=== PATIENT | male | born 1960 | race Asian ===

== ENCOUNTER 2021-02-17 07:26 | Outpatient (REF) | payer OTHER, SELFPAY ==
[2021-02-17 08:16] LABS: Estimated Average Glucose 140 mg/dL; Hemoglobin A1c % 6.5 %
[2021-02-17 08:25] LABS: Anion Gap 14 (12-20); Blood Urea Nitrogen 16 mg/dL (9-16); Calcium 9.3 mg/dL (8.4-10.2); Carbon Dioxide 27 mmol/L (22-29); Chloride 103 mmol/L (96-108); Cholesterol 238 mg/dL; Estimated Glomerular Filt Rate 59; Glucose Random 125 mg/dL (60-115); HDL Cholesterol 40 mg/dL; LDL Cholesterol Calculated 144 mg/dl; Potassium 4.6 mmol/L (3.3-5.1); Sodium 139 mmol/L (135-145); Triglycerides 272 mg/dL
[2021-02-17 08:47] LABS: Prostate Specific Antigen Scr 1.59 ng/mL (<0.05-4.0); Thyroid Stimulating Hormone 2.03 uIU/mL (0.32-4.0); Vitamin D 25-OH Total 26.2 ng/mL (>30)
== END 2021-02-17 07:27 | disposition home or self-care (01) ==
LOC: HO.LAB 07:26
PROVIDERS: Absent Provider Internal Medicine; PCP Internal Medicine; Visit Provider Pediatrics
DX: Z12.5 Encounter for screening for malignant neoplasm of prostate (principal); E55.9 Vitamin D deficiency, unspecified; E66.3 Overweight
CPT/HCPCS: 36415; 80048; 80061; 82306; 83036; 84153; 84443

== ENCOUNTER 2021-06-13 09:44 | Outpatient (REF) | payer OTHER, SELFPAY ==
[2021-06-13 10:41] LABS: Estimated Average Glucose 146 mg/dL; Hemoglobin A1c % 6.7 %
[2021-06-13 10:50] LABS: Alanine Aminotransferase 19 U/L (0-40); Albumin Level 4.5 g/dL (3.5-5.0); Alkaline Phosphatase 95 U/L (39-117); Anion Gap 13 (12-20); Aspartate Amino Transferase 23 U/L (5-37); Bilirubin Total 1.1 mg/dL (0.0-1.0); Blood Urea Nitrogen 16 mg/dL (9-16); Calcium 9.9 mg/dL (8.4-10.2); Carbon Dioxide 27 mmol/L (22-29); Chloride 104 mmol/L (96-108); Cholesterol 192 mg/dL; Estimated Glomerular Filt Rate 55; Glucose Fasting 134 mg/dL (60-99); HDL Cholesterol 47 mg/dL; LDL Cholesterol Calculated 101 mg/dl; Potassium 4.3 mmol/L (3.3-5.1); Sodium 140 mmol/L (135-145); Total Protein 7.3 g/dL (6.5-8.0); Triglycerides 221 mg/dL
[2021-06-13 10:54] LABS: Microalbum/Creatinine Ratio Ur 4.5 ug/mg cr
== END 2021-06-13 09:45 | disposition home or self-care (01) ==
LOC: HO.10HDL 09:44
PROVIDERS: PCP Internal Medicine; Visit Provider Internal Medicine
DX: I10 Essential (primary) hypertension (principal); R73.03 Prediabetes; E78.5 Hyperlipidemia, unspecified
CPT/HCPCS: 36415; 80053; 80061; 82043; 83036

== ENCOUNTER 2021-12-14 07:36 | Outpatient (REF) | payer OTHER, SELFPAY ==
[2021-12-14 08:02] LABS: Binax Internal Control QC Valid; Binax Now Covid-19 Ag Negative (Negative)
== END 2021-12-14 07:37 | disposition home or self-care (01) ==
LOC: HO.LAB 07:36
PROVIDERS: Visit Provider Internal Medicine
DX: Z20.822 Contact with and (suspected) exposure to COVID-19 (principal)
CPT/HCPCS: C9803

== ENCOUNTER 2022-01-22 17:06 | Outpatient (REF) | payer OTHER, SELFPAY ==
[2022-01-22 17:22] LABS: MANUAL DIFF FLAG NO
[2022-01-22 18:00] LABS: Basophils Absolute Auto 0.1 X10*3/uL (0.0-0.2); Basophils Percent Auto 0.8 % (0-2); Eosinophils Absolute Auto 0.2 X10*3/uL (0.0-0.4); Eosinophils Percent Auto 2.9 % (0-4); Hematocrit 43.9 % (42.0-52.0); Hemoglobin 14.5 g/dl (14.0-18.0); Imm Gran Abs Auto 0.02 X10*3/uL (0.00-0.03); Imm Gran Pct Auto 0.3 % (0.0-0.4); Lymphocytes Absolute Auto 1.7 X10*3/uL (1.2-4.9); Lymphocytes Percent Auto 26.7 % (20-40); Mean Corpuscular Hemoglobin 28.5 pg (27.0-33.0); Mean Corpuscular Volume 86.4 fL (80.0-98.0); Mean Platelet Volume 10.5 fL (9.4-12.4); Monocytes Absolute Auto 0.6 X10*3/uL (0.1-1.2); Neutrophils Absolute Auto 3.9 x10*3/uL (2.0-8.3); Neutrophils Percent Auto 60.3 % (45-73); Platelet Count 262 X10*3/uL (160-400); Red Blood Count 5.08 X10*6/uL (4.60-5.80); Red Cell Distribution Width 12.2 % (11.0-16.0); White Blood Count 6.5 X10*3/uL (4.8-10.8)
[2022-01-22 18:07] LABS: Estimated Average Glucose 146 mg/dL; Hemoglobin A1c % 6.7 %
[2022-01-22 18:22] LABS: Alanine Aminotransferase 28 U/L (0-40); Albumin Level 4.7 g/dL (3.5-5.0); Alkaline Phosphatase 101 U/L (39-117); Anion Gap 13 (12-20); Aspartate Amino Transferase 32 U/L (5-37); Bilirubin Total 0.6 mg/dL (0.0-1.0); Blood Urea Nitrogen 23 mg/dL (9-16); Calcium 10.2 mg/dL (8.4-10.2); Carbon Dioxide 26 mmol/L (22-29); Chloride 102 mmol/L (96-108); Estimated Glomerular Filt Rate 57; Glucose Random 108 mg/dL (60-115); Potassium 4.5 mmol/L (3.3-5.1); Sodium 136 mmol/L (135-145); Total Protein 7.7 g/dL (6.5-8.0)
[2022-01-22 18:42] LABS: Prostate Specific Antigen 1.49 ng/mL (<0.05-4.0); Vitamin D 25-OH Total 21.8 ng/mL (>30)
[2022-01-22 18:54] LABS: Creatinine Urine 89.57 mg/dL; Microalbumin Urine < 5.0 mg/L
== END 2022-01-22 17:07 | disposition home or self-care (01) ==
LOC: HO.LAB 17:06
PROVIDERS: PCP Internal Medicine; Visit Provider Internal Medicine
DX: Z12.5 Encounter for screening for malignant neoplasm of prostate (principal); E11.9 Type 2 diabetes mellitus without complications; E55.9 Vitamin D deficiency, unspecified; I10 Essential (primary) hypertension; E78.00 Pure hypercholesterolemia, unspecified
CPT/HCPCS: 36415; 80053; 82043; 82306; 83036; 84153; 85025

== ENCOUNTER 2022-06-17 11:36 | Outpatient (REF) | payer OTHER, SELFPAY ==
[2022-06-17 13:42] LABS: Anion Gap 10 (12-20); Blood Urea Nitrogen 11 mg/dL (9-16); Calcium 9.2 mg/dL (8.4-10.2); Carbon Dioxide 25 mmol/L (22-29); Chloride 107 mmol/L (96-108); Estimated Glomerular Filt Rate > 60; Glucose Random 119 mg/dL (60-115); Potassium 4.1 mmol/L (3.3-5.1); Sodium 138 mmol/L (135-145)
[2022-06-17 14:07] LABS: Vitamin D 25-OH Total 21.8 ng/mL (>30)
[2022-06-17 14:51] LABS: Estimated Average Glucose 137 mg/dL; Hemoglobin A1c % 6.4 %
== END 2022-06-17 11:37 | disposition home or self-care (01) ==
LOC: HO.10HDL 11:36
PROVIDERS: Visit Provider Internal Medicine
DX: I12.9 Hypertensive chronic kidney disease with stage 1 through stage 4 chronic kidney disease, or unspecified chronic kidney disease (principal); N18.9 Chronic kidney disease, unspecified; R73.03 Prediabetes; E55.9 Vitamin D deficiency, unspecified
CPT/HCPCS: 36415; 80048; 82306; 83036

== ENCOUNTER 2022-09-23 11:43 | Outpatient (REF) | payer OTHER, SELFPAY ==
[2022-09-23 13:53] LABS: Estimated Average Glucose 134 mg/dL; Hemoglobin A1c % 6.3 %
[2022-09-23 13:59] LABS: Alanine Aminotransferase 20 U/L (0-40); Albumin Level 4.5 g/dL (3.5-5.0); Alkaline Phosphatase 110 U/L (39-117); Anion Gap 15 (12-20); Aspartate Amino Transferase 27 U/L (5-37); Bilirubin Total 0.4 mg/dL (0.0-1.0); Blood Urea Nitrogen 20 mg/dL (9-16); Calcium 9.6 mg/dL (8.4-10.2); Carbon Dioxide 23 mmol/L (22-29); Chloride 104 mmol/L (96-108); Estimated Glomerular Filt Rate > 60; Glucose Random 99 mg/dL (60-115); Potassium 4.4 mmol/L (3.3-5.1); Sodium 138 mmol/L (135-145); Total Protein 7.3 g/dL (6.5-8.0)
== END 2022-09-23 11:44 | disposition home or self-care (01) ==
LOC: HO.10HDL 11:43
PROVIDERS: Visit Provider Internal Medicine
DX: I10 Essential (primary) hypertension (principal); R73.03 Prediabetes; E55.9 Vitamin D deficiency, unspecified
CPT/HCPCS: 36415; 80053; 82306; 83036

== ENCOUNTER 2024-04-28 10:10 | Outpatient (REF) | payer OTHER, SELFPAY ==
[2024-04-28 10:19] LABS: MANUAL DIFF FLAG NO
[2024-04-28 10:34] LABS: Basophils Absolute Auto 0.1 X10*3/uL (0.0-0.2); Basophils Percent Auto 1.1 % (0-2); Eosinophils Absolute Auto 0.2 X10*3/uL (0.0-0.4); Eosinophils Percent Auto 4.4 % (0-4); Hematocrit 43.4 % (42.0-52.0); Hemoglobin 14.5 g/dl (14.0-18.0); Imm Gran Abs Auto 0.01 X10*3/uL (0.00-0.03); Imm Gran Pct Auto 0.2 % (0.0-0.4); Lymphocytes Absolute Auto 1.7 X10*3/uL (1.2-4.9); Lymphocytes Percent Auto 31.3 % (20-40); Mean Corpuscular HGB Conc 33.4 g/dl (31.0-36.0); Mean Corpuscular Hemoglobin 28.8 pg (27.0-33.0); Mean Corpuscular Volume 86.3 fL (80.0-98.0); Mean Platelet Volume 10.1 fL (9.4-12.4); Monocytes Absolute Auto 0.4 X10*3/uL (0.1-1.2); Monocytes Percent Auto 8.3 % (2-11); Neutrophils Absolute Auto 2.9 x10*3/uL (2.0-8.3); Neutrophils Percent Auto 54.7 % (45-73); Platelet Count 231 X10*3/uL (160-400); Red Blood Count 5.03 X10*6/uL (4.60-5.80); Red Cell Distribution Width 11.9 % (11.0-16.0); White Blood Count 5.3 X10*3/uL (4.8-10.8)
[2024-04-28 10:50] LABS: Estimated Average Glucose 154 mg/dL
[2024-04-28 10:58] LABS: Alanine Aminotransferase 23 U/L (0-40); Albumin Level 4.4 g/dL (3.5-5.0); Alkaline Phosphatase 110 U/L (39-117); Anion Gap 13 (12-20); Aspartate Amino Transferase 26 U/L (5-37); Bilirubin Total 0.7 mg/dL (0.0-1.0); Blood Urea Nitrogen 15 mg/dL (9-16); Calcium 9.5 mg/dL (8.4-10.2); Carbon Dioxide 25 mmol/L (22-29); Chloride 108 mmol/L (96-108); Cholesterol 166 mg/dL (<200); Estimated Glomerular Filt Rate > 60; Glucose Fasting 121 mg/dL (60-99); HDL Cholesterol 50 mg/dL (>40); LDL Cholesterol Calculated 85 mg/dL (<100); Potassium 4.5 mmol/L (3.3-5.1); Sodium 141 mmol/L (135-145); Total Protein 7.2 g/dL (6.5-8.0); Triglycerides 156 mg/dL (<150)
[2024-04-28 11:16] LABS: Vitamin D 25-OH Total 25.1 ng/mL (>30)
== END 2024-04-28 10:11 | disposition home or self-care (01) ==
LOC: HO.LAB 10:10
PROVIDERS: PCP Internal Medicine; Visit Provider Internal Medicine
DX: Z00.00 Encounter for general adult medical examination without abnormal findings (principal); I12.9 Hypertensive chronic kidney disease with stage 1 through stage 4 chronic kidney disease, or unspecified chronic kidney disease; N18.9 Chronic kidney disease, unspecified
CPT/HCPCS: 36415; 80053; 80061; 82306; 83036; 85025

== ENCOUNTER 2024-11-02 12:29 | Outpatient (REF) | payer OTHER, SELFPAY ==
[2024-11-02 13:29] LABS: Anion Gap 12 (12-20); Blood Urea Nitrogen 17 mg/dL (9-16); Calcium 9.4 mg/dL (8.4-10.2); Carbon Dioxide 26 mmol/L (22-29); Chloride 105 mmol/L (96-108); Estimated Glomerular Filt Rate > 60; Glucose Random 114 mg/dL (60-115); Potassium 4.1 mmol/L (3.3-5.1); Sodium 139 mmol/L (135-145)
[2024-11-02 13:35] LABS: Estimated Average Glucose 171 mg/dL; Hemoglobin A1C 220.4946 umol/L; Hemoglobin A1c % 7.6 % (<6.0); Total Hemoglobin (HGBA1C) 3728.5325 umol/L
== END 2024-11-02 12:30 | disposition home or self-care (01) ==
LOC: HO.10HDL 12:29
PROVIDERS: Visit Provider Internal Medicine
DX: I10 Essential (primary) hypertension (principal); E11.9 Type 2 diabetes mellitus without complications
CPT/HCPCS: 36415; 80048; 83036

== ENCOUNTER 2025-08-15 12:51 | Outpatient (AMB) | payer OTHER, SELFPAY ==
--- NOTE | 2025-08-15 12:54 | A.OFFPC_ITS ---
Vital Signs 08/15/25 12:56 Height 5 ft 4 in Weight 163 lb 5 oz BMI 28.0 BP 120/76 Respiration 16 Pulse 63 Pulse Source Pulse Oximeter Temp 98.4 F Temp Source Temporal Artery Scan Pulse Oximetry (%) 98 Oxygen Delivery Method Room Air Intake Visit Reasons: Annual - see comments Income Tax Manager Required: No Accompanied by: Self / Same As Patient Allergies No Known Allergies Allergy (Verified 08/15/25 12:59) Tobacco use date assessed: 08/15/25 Fall risk assessment: No Falls in past year Last assessed Fall Risk: 08/15/25 Dental Screening Dental Screen Date: 08/15/25 Did you have a dental visit in the last 12 months?: Yes Did you have a dental problem in the last 6 months where you did not have access to dental care?: No Was dental information given to patient?: No HPI HPI Comments History of Present Illness Details The patient is a 64-year-old male presenting with known chronic conditions including diabetes mellitus type 2, essential hypertension, hyperlipidemia, and gout. These conditions have been managed with various medications; however, the patient reports a recent diagnosis of diabetes mellitus. While reviewing his history, it was identified that the patient's con dition transitioned from prediabetes in 2021 to a formal diagnosis of diabetes in April 2024 based on prior blood work. There is uncertainty regarding the exact onset, but it was correlated with blood test results. The patient denies a family history of cancer, but notes that his father developed diabetes after age 75. The patient also reports recent episodes of chest tightness occurring approxima tely two to three weeks ago. These episodes were noted twice, once in the center of the chest and another time on the side. They occurred subsequent to activity but not during it, subsiding without intervention. The patient denies any accompanying symptoms such as shortness of breath or pain radiating to the arms, neck, or jaw. There are no noted triggers for these symptoms although fatigue was experienced on the same day of the episodes. Medical History: - Essential Hypertension - Hyperlipidemia - Gout - Type 2 Diabetes Mellitus (diagnosed Ju 2023) - Seasonal Allergies Surgical History: - No prior surgeries reported. Medications: - Atorvastatin 20 mg for hyperlipidemia - Lisinopril 5 mg for hypertension - Allopurinol 100 mg for gout - Albuterol inhaler for allergy symptoms - Zyrtec for seasonal allergies Family History: - Paternal history of diabetes after age 75 - No family history of cancer or hyperte nsion reported. Diagnostic Results: - Blood test results from 2023 indicate transition to type 2 diabetes. Social: - with two girls in college. - Brief smoking history during high [employer], no current cigarettes, alcohol, or illicit drug use. - Expresses concern about ongoing health to support daughters' education. [facility] Medical History (Updated 08/15/25 @ 13:23 by Andrew Jaramillo MD) Chest pain Gout Hyperlipidemia Diabetes Hypertension Social History Housing: House Patient Tobacco Use Status: Former Tobacco user e-Cigarette/Vaping Use: Never Used service: No Current occupational status: employed Cognitive needs: No Hearing needs: No Vision needs: No Questionnaire PHQ-9 Over the last 2 weeks, how often have you been bothered by any of the following problems? 1. Little interest or pleasure in doing things: not at all 2. Feeling down, depressed, or hopeless: not at all 3. Trouble falling or staying asleep, or sleeping too much: not at all 4. Feeling tired or having little energy: not at all 5. Poor appetite or overeating: not at all 6. Feeling bad about yourself - or that you are a failure or have let yourself or your family down: not at all 7. Trouble concentrating on things, such as reading the newspaper or watching television: not at all 8. Moving or speaking so slowly that other people could have noticed. Or the opposite - being so fidgety or restless that you have been moving around a lot more than usual: not at all 9. Thoughts that you would be better off or of hurting yourself in some way: not at all Total score: 0 Depression Screening Interpretation: Negative Depression Screening Done: Yes 77497 - PHQ-9 Billing: Yes Source: Developed by Drs. Reinier Huffman, Melody Acevedo, Parish Stone and colleagues, with an educational yemi from [employer]. Thrive Questionnaire Date Thrive assessed: 08/15/25 I am a: Patient What is your living situation today?: I have a steady place to live Within the past 12 months, did the food you bought not last and you didn't have the money to get more?: Never true Within the past 12 months, did you worry whether your food would run out before you got money to buy more?: Never true Do you have trouble paying for medicines?: No Do you have trouble getting transportation to medical appointments?: No Do you have trouble paying your heating and electricity bill?: No Do you have trouble taking care of your child, family member or friend?: No Do you have trouble with day-to-day activities such as bathing, preparing meals, shopping, managing finances, etc.?: No Are you currently unemployed and looking for a job?: No Are you interested in more education?: No THRIVE Score: 0 AUDIT C Alcohol Use Questionnaire (AUDIT-C) 1. How often do you have a drink containing alcohol?: Never 3. How often do you have six or more drinks on one occasion?: Never Total Score: 0 Score Reviewed/Action Taken: Yes VANE-7 AMB Questionnaire VANE-7 Date VANE - 7 assessed: 08/15/25 Feeling nervous, anxious, or on edge: 1 = Several days Not being able to stop or control worryin = Not at all Worrying too much about different things: 0 = Not at all Trouble relaxin = Not at all Being so restless that it is hard to sit still: 0 = Not at all Becoming easily annoyed or irritable: 0 = Not at all Feeling afraid as if something awful might happen: 0 = Not at all Total VANE-7 score (0-4 normal; 5-9 mild; 10-14 moderate; 15-21 severe): 1 Source: Developed by Drs. Reinier Huffman, Melody Acevedo, Parish Stone and colleagues, with an educational yemi from [employer]. VANE-7 Assessment Billing VANE-7 Assessment Tool: VANE-7 Assessment [id number] Review of Systems Const Details: - Cardiovascular: Reports episodes of chest tightness; Denies persistent chest pain. - Musculoskeletal: Reports neck discomfort, possibly arthritic in nature; Denies joint swelling. - Endocrine: Denies symptoms of hypo/hyperglycemia. - Respiratory: Denies chronic cough, shortness of breath. - Neurological: Denies headaches, dizziness. All systems reviewed & are unremarkable except as reviewed in HPI and above Physical exam (Primary Care) Vital Signs: Last Vital Signs Temp 98.4 F 08/15/25 12:56 Pulse 63 08/15/25 12:56 Resp 16 09/22/25 12:56 BP 120/76 08/15/25 12:56 Pulse Ox 98 08/15/25 12:56 Oxygen Delivery Method Room Air 08/15/25 12:56 BMI result Body Mass Index 28.0 Tobacco/Smoking Status: Tobacco use Status Tobacco use date assessed 08/15/25 08/15/25 13:03 Patient Tobacco Use Status Former Tobacco user 08/15/25 13:03 e-Cigarette/Vaping Use Never Used 08/15/25 13:03 PHQ-9: PHQ-9 Score PHQ-9: Total score 0 08/15/25 13:11 Depression Screening Interpretation: Negative Const Other: General: +Alert and oriented, Well nourished, No acute distress. Eye: Pupils are equal, round and reactive to light, Intact accommodation, Extraocular movements are intact, Normal conjunctiva, Vision unchanged. HENT: Normocephalic, Atraumatic, Tympanic membranes are clear, Normal hearing, Oral mucosa is moist, No pharyngeal erythema, Ear canals patent. Respiratory: Lungs CTA bilaterally, No wheeze, Respirations are non-labored. Cardiovascular: Regular rate, Regular rhythm, S1 auscultated, S2 auscultated, No murmur, Good pulses equal in all extremities, Normal peripheral perfusion, No edema. Gastrointestinal: Soft, Non-tender, Non-distended, Normal bowel sounds, No organomegaly. Musculoskeletal: Normal range of motion, Normal strength, No tenderness, No swelling, No deformity, Normal gait. Integumentary: Warm, Dry, Paden, Intact. Neurologic: Alert, Oriented, Normal sensory, Normal motor function, No focal defects, Cranial Nerves II-XII are grossly intact, Normal deep tendon reflexes. Psychiatric: Cooperative, Appropriate mood & affect, Normal judgment, No depression or anxiety. Coding Level of Care Code New Pt Level 4 (31339) New Pt Prev Care 40-64y(18900) Diagnoses Primary hypertension I10 Hypertension type: primary hypertension Other hyperlipidemia E78.49 Hyperlipidemia type: other hyperlipidemia Type 2 diabetes mellitus without complication, without long-term current use of insulin E11.9 Diabetes mellitus type: type 2 Diabetes mellitus middle or intermediate school principal insulin use: without middle or intermediate school principal use Diabetes mellitus complication status: without complication Other chest pain R07.89 Chest pain type: other chest pain Additional Codes VANE-7 Assessment Billing - VANE-7 Assessment Tool: VANE-7 Assessment [id number] ([id number]) PHQ-9 - 11022 - PHQ-9 Billing: Yes ([id number]) Assessment & Plan Assessment & Plan (1) Hypertension: Comment: - Continue lisinopril 5 mg daily. Code(s): I10 - Essential (primary) hypertension Category: Medical Qualifiers: Hypertension type: primary hypertension Qualified Code(s): I10 - Essential (primary) hypertension (2) Hyperlipidemia: Comment: - Continue atorvastatin 20 mg for cholesterol management. - Plan to check cholesterol levels. Code(s): E78.5 - Hyperlipidemia, unspecified Category: Medical Qualifiers: Hyperlipidemia type: other hyperlipidemia Qualified Code(s): E78.49 - Other hyperlipidemia (3) Diabetes: Comment: - Review of blood glucose levels pending; plan for initiation of metformin 500 mg if indicated. Prior A1c elevated to over 7 and was prescribed jardiance but doesn't appear was taking it do to cost - Will re-check A1c & if elevated with start merformin 500mg BID Code(s): E11.9 - Type 2 diabetes mellitus without complications Category: Medical Qualifiers: Diabetes mellitus type: type 2 Diabetes mellitus middle or intermediate school principal insulin use: without assisted use Diabetes mellitus complication status: without complication Qualified Code(s): E11.9 - Type 2 diabetes mellitus without complications (4) Chest pain: Comment: Endorses having 2 episodes of chest pain when being substernal the other chest tightness around the right and left side of his chest. No association with activity and occurred at rest. Did report being active prior to the episode. While it does appear to be atypical, we will obtain a stress test to rule out any ischemic etiologies Code(s): R07.9 - Chest pain, unspecified Category: Medical Qualifiers: Chest pain type: other chest pain Qualified Code(s): R07.89 - Other chest pain Plan: Health Maintenance: - Plan for a colonoscopy, given due status. - Stress echocardiogram has been ordered to assess chest tightness. - Discussed the importance of regular physical activity for joint and cardiovascular health. Patient was informed and verbally consented to the use of an ambient scribe for clinic note documentation during this visit. Plan During the consultation, I reviewed the patient's chronic conditions, including his need to manage his newly identified diabetes and ongoing hypertension, hyperlipidemia, and gout medications. We discussed the potential need for metformin to address elevated blood glucose levels and reviewed the benefits associated with cardiovascular protection afforded by medications like Jardiance despite its cost. The patient reported episodes of chest tightness, leading to the decision to pursue a stress echocardiogram to rule out cardiac involvement. Additionally, we reviewed preventive measures, such as physical activity and appropriate medical follow-up, to manage chronic conditions effectively. The patient?s concerns about his ability to care for his family were addressed, providing reassurance regarding care plan goals. Orders: Orders Complete Blood Count Auto Diff Today E11.9 - Type 2 diabetes mellitus without complications, E78.5 - Hyperlipidemia, unspecified, I10 - Essential (primary) hypertension, M10.9 - Gout, unspecified Comprehensive Met. Panel Today E11.9 - Type 2 diabetes mellitus without complications, E78.5 - Hyperlipidemia, unspecified, I10 - Essential (primary) hypertension, M10.9 - Gout, unspecified Hemoglobin A1c Today E11.9 - Type 2 diabetes mellitus without complications, E78.5 - Hyperlipidemia, unspecified, I10 - Essential (primary) hypertension, M10.9 - Gout, unspecified Lipid Panel Today E11.9 - Type 2 diabetes mellitus without complications, E78.5 - Hyperlipidemia, unspecified, I10 - Essential (primary) hypertension, M10.9 - Gout, unspecified Vitamin D 25-OH Total Today E11.9 - Type 2 diabetes mellitus without complications, E78.5 - Hyperlipidemia, unspecified, I10 - Essential (primary) hypertension, M10.9 - Gout, unspecified CA Dobutamine Stress Echo Today R07.9 - Chest pain, unspecified TSH reflex Free T4 Today E11.9 - Type 2 diabetes mellitus without complications, E78.5 - Hyperlipidemia, unspecified, I10 - Essential (primary) hypertension, M10.9 - Gout, unspecified Referrals Open Access Screening Colonoscopy Referral Z12.11 - Encounter for screening for malignant neoplasm of colon Patient Instructions: - Continue taking all current medications as prescribed. - Attend scheduled stress echocardiogram appointment. - Maintain regular physical activity; aim for moderate exercise most days. - Follow up with lab work and colonoscopy as directed. - Monitor for symptoms such as sustained chest pain or discomfort and seek medical attention if they occur. - Await lab results, and expect a call regarding potential changes to diabetic management.
[2025-08-15 12:56] VITALS: BP 120/76; PULSE 63; RESP 16; TEMP 36.9; O2SAT 98; BMI 28.0
== END 2025-08-15 13:23 | disposition home or self-care (01) ==
PROVIDERS: PCP Student in an Organized Health Care Education/Training Program; Visit Provider Student in an Organized Health Care Education/Training Program
DX: Z00.00 Encounter for general adult medical examination without abnormal findings (principal); R07.89 Other chest pain; E11.49 Type 2 diabetes mellitus with other diabetic neurological complication; I10 Essential (primary) hypertension; E78.49 Other hyperlipidemia

== ENCOUNTER → 2025-08-15 12:51 | Outpatient (BNVA) | payer OTHER, SELFPAY | PROVIDERS: PCP Internal Medicine; Visit Provider Student in an Organized Health Care Education/Training Program | DX: Z00.00 Encounter for general adult medical examination without abnormal findings (principal); I10 Essential (primary) hypertension; E78.49 Other hyperlipidemia; E11.9 Type 2 diabetes mellitus without complications; R07.89 Other chest pain; M10.9 Gout, unspecified; Z79.899 Other long term (current) drug therapy; Z13.31 Encounter for screening for depression; Z13.39 Encounter for screening examination for other mental health and behavioral disorders | CPT/HCPCS: 96127; 99202; 99386 ==

== ENCOUNTER → 2025-10-28 10:04 | Outpatient (REF) | payer MEDICARE, SELFPAY ==
--- NOTE | 2025-10-28 10:07 | CA_ITS ---
Acquisition Time: 2025-10-28 10:23:25 Total Exercise Time: 00:05:00 Test Indications: CP,Fatigue Medications: ATORVASTATIN LISINOPRIL ALLOPURINOL ALBUTEROL INHALER ZYRTEC Protocol: ARCENIO Max HR: 137 BPM 88% of Pred: 155 BPM Max BP: 184/70 mmHG Max Work Load: 5.8 METS Exercise stress test with exercise 5 mins of Arcenio Protocsol at a reduced speed of 2.1mph, acheiving 88% MPHR, with reports of heavy breathing, no CP, with isolated PVCs and rare couplets, with normotensive response to exercise. Without any EKG changes meeting criteria for ischemia. In recovery, breathing returned to baseline. Test reviewed with Dr. Lyons. Referred By: Andrew Jaramillo Electronically Signed By: Blue Ovalle
== END ==
LOC: HO.CARD 10:04
PROVIDERS: PCP Student in an Organized Health Care Education/Training Program; Visit Provider Student in an Organized Health Care Education/Training Program
DX: R07.89 Other chest pain (principal)
CPT/HCPCS: 93017

== ENCOUNTER → 2025-10-28 10:07 | Outpatient (BNV) | payer MEDICARE, SELFPAY | PROVIDERS: PCP Student in an Organized Health Care Education/Training Program | DX: I49.3 Ventricular premature depolarization (principal) | CPT/HCPCS: 93016; 93018 ==